=== PATIENT | female | born 1995 | race Caucasian/White ===

== ENCOUNTER 2018-02-09 12:07 | Emergency (ER) | payer OTHER | END 2018-02-09 14:01 | disposition home or self-care (01) | LOC: FTE 12:07 | DX: O23.591 Infection of other part of genital tract in pregnancy, first trimester (principal); K13.79 Other lesions of oral mucosa; Z3A.00 Weeks of gestation of pregnancy not specified | CPT/HCPCS: 99284 ==

== ENCOUNTER 2018-06-11 23:11 | Outpatient (CLI) | payer OTHER ==
[2018-06-12 00:49] LABS: ADD MAN DIFF? NO
[2018-06-12 00:52] LABS: WHITE BLOOD COUNT 7.2 10^3/ul (4.8-10.8)
[2018-06-12 00:52] LABS: BASOPHILS % 0.4 % (0.0-2.0); EOSINOPHILS # 0.1 10^3/ul (0.0-0.5); EOSINOPHILS % 1.2 % (0.0-7.0); HEMATOCRIT 31.7 % (37.0-47.0); HEMOGLOBIN 10.8 g/dl (12.0-16.0); LYMPHOCYTES # 1.4 10^3/ul (0.8-2.9); LYMPHOCYTES % 19.1 % (15.0-51.0); MEAN CORPUSCULAR HEMOGLOBIN 30.8 pg (29.0-33.0); MEAN CORPUSCULAR HGB CONC 34.1 g/dl (32.0-37.0); MEAN CORPUSCULAR VOLUME 90.3 fl (82.0-101.0); MEAN PLATELET VOLUME 11.3 fl (7.4-10.4); MONOCYTE # 0.5 10^3/ul (0.3-0.9); NEUTROPHIL # 5.2 10^3/ul (1.6-7.5); NEUTROPHILS % 71.6 % (39.0-77.0); PLATELET COUNT 157 10^3/UL (140-415); RED BLOOD COUNT 3.51 10^6/ul (4.20-5.40); RED CELL DISTRIBUTION WIDTH 13.4 % (11.5-14.5)
[2018-06-12] MEDS: LACTATED RINGER'S 1,000 ML IV (01:15)
[2018-06-12] MEDS: ONDANSETRON 4 MG INJ IV (01:16)
[2018-06-12 01:20] LABS: ALANINE AMINOTRANSFERASE 53 IU/L (13-69); ALBUMIN 2.9 g/dl (3.3-4.9); ALBUMIN/GLOBULIN RATIO 0.87; ALKALINE PHOSPHATASE 100 IU/L (42-121); ANION GAP 10 (8-16); ASPARTATE AMINO TRANSFERASE 43 IU/L (15-46); BILIRUBIN,INDIRECT 0.5 mg/dl (0-1.1); BILIRUBIN,TOTAL 0.5 mg/dl (0.2-1.3); BLOOD UREA NITROGEN 9 mg/dl (7-20); CALCIUM 8.6 mg/dl (8.4-10.2); CARBON DIOXIDE 27 mmol/L (21-31); CHLORIDE 103 mmol/L (97-110); CREATININE 0.59 mg/dl (0.44-1.00); GLUCOSE 87 mg/dl (70-220); POTASSIUM 3.8 mmol/L (3.5-5.1); SODIUM 136 mmol/L (135-144); TOTAL PROTEIN 6.2 g/dl (6.1-8.1)
[2018-06-12] MEDS: ZOLPIDEM 5 MG TAB PO (01:21)
[2018-06-12 01:38] LABS: AMPHETAMINE/METHAMPHETAMINE Negative (NEGATIVE); BARBITURATES Negative (NEGATIVE); BENZODIAZEPINES Negative (NEGATIVE); COCAINE Negative (NEGATIVE); OPIATES Negative (NEGATIVE)
[2018-06-12 01:46] LABS: CANNABINOIDS Negative (NEGATIVE)
[2018-06-12 02:44] LABS: ADD UMIC NO; UR ASCORBIC ACID NEGATIVE (NEGATIVE); UR BILIRUBIN (Dip) NEGATIVE (NEGATIVE); UR BLOOD (Dip) NEGATIVE (NEGATIVE); UR CLARITY CLEAR (CLEAR); UR COLOR YELLOW (YELLOW); UR GLUCOSE (Dip) NEGATIVE (NEGATIVE); UR KETONES (Dip) NEGATIVE (NEGATIVE); UR LEUKOCYTE ESTERASE (Dip) NEGATIVE Leu/ul (NEGATIVE); UR NITRITE (Dip) NEGATIVE (NEGATIVE); UR SPECIFIC GRAVITY (Dip) 1.008 (1.003-1.030); UR TOTAL PROTEIN (Dip) NEGATIVE (NEGATIVE); UR UROBILINOGEN (Dip) NEGATIVE (NEGATIVE)
== END 2018-06-12 02:57 | disposition home or self-care (01) ==
LOC: OBT 23:11 → L-D 23:11
DX: O21.0 Mild hyperemesis gravidarum (principal); Z3A.29 29 weeks gestation of pregnancy; O26.893 Other specified pregnancy related conditions, third trimester
CPT/HCPCS: 36415; 76815; 80053; 80307; 81003; 85025; 96360; 96361

== ENCOUNTER 2018-08-24 23:55 | Inpatient (IN) | payer OTHER ==
[2018-08-25] MEDS ORDERED: LORAZEPAM 0.5 MG TAB PO (01:30)
[2018-08-25] MEDS ORDERED: BISACODYL (EC) 5 MG TAB PO (01:30)
[2018-08-25] MEDS ORDERED: ACETAMINOPHEN 325 MG TAB PO (01:30)
[2018-08-25] MEDS ORDERED: DOCUSATE SODIUM 100 MG CAP PO (01:30)
[2018-08-25] MEDS ORDERED: NACL 0.9% 3 ML SYG IV (01:30)
[2018-08-25] MEDS ORDERED: ONDANSETRON 4 MG INJ IV (01:30)
[2018-08-25 02:35] LABS: ADD MAN DIFF? NO
[2018-08-25 02:39] LABS: BASOPHIL # 0.1 10^3/ul (0.0-0.1); BASOPHILS % 1.4 % (0.0-2.0); EOSINOPHILS # 0.1 10^3/ul (0.0-0.5); EOSINOPHILS % 2.6 % (0.0-7.0); HEMATOCRIT 38.7 % (37.0-47.0); HEMOGLOBIN 13.1 g/dl (12.0-16.0); LYMPHOCYTES # 1.3 10^3/ul (0.8-2.9); MEAN CORPUSCULAR HEMOGLOBIN 29.6 pg (29.0-33.0); MEAN CORPUSCULAR HGB CONC 33.9 g/dl (32.0-37.0); MEAN CORPUSCULAR VOLUME 87.4 fl (82.0-101.0); MONOCYTE # 0.3 10^3/ul (0.3-0.9); MONOCYTES % 6.4 % (0.0-11.0); NEUTROPHIL # 3.2 10^3/ul (1.6-7.5); NEUTROPHILS % 64.4 % (39.0-77.0); PLATELET COUNT 313 10^3/UL (140-415); RED BLOOD COUNT 4.43 10^6/ul (4.20-5.40); RED CELL DISTRIBUTION WIDTH 12.8 % (11.5-14.5)
[2018-08-25 02:58] LABS: ALANINE AMINOTRANSFERASE 36 IU/L (13-69); ALBUMIN 3.3 g/dl (3.3-4.9); ALKALINE PHOSPHATASE 96 IU/L (42-121); ANION GAP 7 (5-13); ASPARTATE AMINO TRANSFERASE 48 IU/L (15-46); BLOOD UREA NITROGEN 13 mg/dl (7-20); CALCIUM 8.2 mg/dl (8.4-10.2); CARBON DIOXIDE 24 mmol/L (21-31); CHLORIDE 108 mmol/L (97-110); CHOL/HDL RATIO 2.5 RATIO; CHOLESTEROL 186 mg/dl (100-200); CREATININE 0.85 mg/dl (0.44-1.00); Estimated GFR > 60 mL/min (>60); GLUCOSE 95 mg/dl (70-220); HDL CHOLESTEROL 73 mg/dl (33-83); LDL CHOLESTEROL,CALCULATED 98 mg/dl; MAGNESIUM 2.1 mg/dl (1.7-2.5); POTASSIUM 3.6 mmol/L (3.5-5.1); SODIUM 139 mmol/L (135-144); TOTAL PROTEIN 6.3 g/dl (6.1-8.1); TRIGLYCERIDES 74 mg/dl (0-149)
[2018-08-25 03:04] LABS: HEMOGLOBIN A1C 4.9 % (0-5.9)
[2018-08-25] MEDS ORDERED: HEPARIN 5,000 UNIT/0.5 ML VIAL ×3 (03:20→14:48)
[2018-08-25 03:27] LABS: THYROID STIMULATING HORMONE 0.135 MIU/L (0.465-4.680)
[2018-08-25] MEDS: HEPARIN 5,000 UNIT/1 ML VIAL SC ×3 (03:41→14:53)
[2018-08-25] MEDS: METHADONE 5 MG TAB PO ×2 (03:44→10:42)
[2018-08-25] MEDS: POTASSIUM CHLORIDE (SR) 20 MEQ TAB PO (05:03)
[2018-08-25 06:35] LABS: ADD UMIC YES; UR ASCORBIC ACID NEGATIVE (NEGATIVE); UR BACTERIA FEW /HPF (NONE SEEN); UR BILIRUBIN (Dip) NEGATIVE (NEGATIVE); UR BLOOD (Dip) 1+ mg/dL (NEGATIVE); UR CLARITY SLIGHTLY CLOUDY (CLEAR); UR COLOR YELLOW (YELLOW); UR GLUCOSE (Dip) NEGATIVE (NEGATIVE); UR KETONES (Dip) TRACE mg/dL (NEGATIVE); UR LEUKOCYTE ESTERASE (Dip) 1+ Leu/ul (NEGATIVE); UR MUCUS FEW /HPF (NONE SEEN); UR NITRITE (Dip) NEGATIVE (NEGATIVE); UR RBC 2 /HPF (0-5); UR SPECIFIC GRAVITY (Dip) 1.023 (1.003-1.030); UR SQUAMOUS EPITHELIAL CELL FEW /HPF (FEW); UR TOTAL PROTEIN (Dip) NEGATIVE (NEGATIVE); UR UROBILINOGEN (Dip) NEGATIVE (NEGATIVE); UR WBC 18 /HPF (0-5)
[2018-08-25 06:46] LABS: BARBITURATES Negative (NEGATIVE); BENZODIAZEPINES Negative (NEGATIVE); CANNABINOIDS Negative (NEGATIVE); COCAINE Negative (NEGATIVE)
[2018-08-25 07:00] LABS: TROPONIN-I < 0.012 ng/ml (0.000-0.120)
[2018-08-25] MEDS: CEFTRIAXONE 1 GM/50 ML (PMX) 50 ML IVPB (07:00)
[2018-08-25 07:02] LABS: ETHANOL < 10.0 mg/dl (0-0)
[2018-08-25 07:05] LABS: FREE T3 2.89 pg/ml (2.77-5.27)
[2018-08-25 07:11] LABS: FREE T4 (FREE THYROXINE) 1.47 ng/dl (0.79-2.35)
[2018-08-25 07:50] LABS: AMPHETAMINE/METHAMPHETAMINE POSITIVE (NEGATIVE); OPIATES Positive (NEGATIVE)
[2018-08-25] MEDS ORDERED: LORAZEPAM 2 MG INJ IV (10:30)
[2018-08-25] MEDS: LORAZEPAM 2 MG INJ IM (10:42)
[2018-08-25] MEDS: QUETIAPINE 25 MG TAB PO (10:42)
[2018-08-25 12:39] LABS: TROPONIN-I < 0.012 ng/ml (0.000-0.120)
== END 2018-08-25 15:50 | disposition left against medical advice (07) | DRG 894 ==
LOC: 6WM 08-25 12:48
DX: F11.23 Opioid dependence with withdrawal (principal); F15.23 Other stimulant dependence with withdrawal; R00.1 Bradycardia, unspecified; F32.9 Major depressive disorder, single episode, unspecified; R45.1 Restlessness and agitation; Z53.21 Procedure and treatment not carried out due to patient leaving prior to being seen by health care provider
CPT/HCPCS: 80053; 80061; 80307; 81001; 83036; 83735; 84439; 84443; 84481; 84484; 85025; 87081